=== PATIENT | female | born 1955 | race Two or more races ===

== ENCOUNTER → 2017-11-24 14:05 | Outpatient (CLI) | payer BC, SELFPAY ==
[2017-11-30 11:47] LABS: HPV Reflexed? NOT INDICATED
== END ==
PROVIDERS: Visit Provider Obstetrics & Gynecology
DX: Z12.4 Encounter for screening for malignant neoplasm of cervix (principal)
CPT/HCPCS: 88175; G0145

== ENCOUNTER → 2019-02-08 11:49 | Outpatient (CLI) | payer BC, SELFPAY ==
[2019-02-13 17:30] LABS: HPV Reflexed? NOT INDICATED
== END ==
PROVIDERS: Visit Provider Obstetrics & Gynecology
DX: Z12.4 Encounter for screening for malignant neoplasm of cervix (principal)
CPT/HCPCS: 88175; G0145